=== PATIENT | female | born 1970 | race Caucasian/White ===

== ENCOUNTER 2017-02-22 17:28 | Emergency (ER) | payer MEDICARE, MEDICAID ==
[~2017-02-22] VITALS: Ht 162.6 cm; Wt 53.5 kg
[~2017-02-22 17:28] MED LIST: DIVA500T35 PO; QUET50XR PO; VENL-67 PO
[2017-02-22 17:35] VITALS: BP 124/72
== END 2017-02-22 20:30 | disposition left against medical advice (07) ==
LOC: EMS 17:32
DX: M54.9 Dorsalgia, unspecified (principal); Z53.21 Procedure and treatment not carried out due to patient leaving prior to being seen by health care provider

== ENCOUNTER 2018-04-19 12:22 | Emergency (ER) | payer MEDICARE, OTHER ==
[~2018-04-19] VITALS: Ht 162.6 cm; Wt 59.0 kg
[2018-04-19] MEDS ORDERED: BUSP10TA23 PO (12:51)
[2018-04-19 13:43] VITALS: BP 118/61
[2018-04-19] MEDS ORDERED: ACETAMINOPHEN 325 MG TABLET PO ONE (13:45)
== END 2018-04-19 13:59 | disposition home or self-care (01) ==
LOC: EMS 12:24
DX: H93.12 Tinnitus, left ear (principal); G43.909 Migraine, unspecified, not intractable, without status migrainosus; F17.210 Nicotine dependence, cigarettes, uncomplicated; F19.90 Other psychoactive substance use, unspecified, uncomplicated; F14.90 Cocaine use, unspecified, uncomplicated; Z88.8 Allergy status to other drugs, medicaments and biological substances; Z59.0 Homelessness
CPT/HCPCS: 99283

== ENCOUNTER 2020-04-21 17:33 | Emergency (ER) | payer MEDICARE, OTHER ==
[~2020-04-21] VITALS: Ht 162.6 cm; Wt 63.6 kg
[~2020-04-21 17:33] MED LIST changes: +BUSP10TA23 PO; +DIVA-112 PO; -DIVA500T35 PO; +QUET50TA15 PO; -QUET50XR PO; -VENL-67 PO
[2020-04-21] MEDS ORDERED: ACETAMINOPHEN 500 MG TABLET PO ONE (19:00)
[2020-04-21 19:10] VITALS: BP 132/88
== END 2020-04-21 19:11 | disposition home or self-care (01) ==
LOC: EMS 17:45
DX: S09.90XA Unspecified injury of head, initial encounter (principal); F41.9 Anxiety disorder, unspecified; F32.9 Major depressive disorder, single episode, unspecified; G43.909 Migraine, unspecified, not intractable, without status migrainosus; F20.9 Schizophrenia, unspecified; F14.90 Cocaine use, unspecified, uncomplicated; F19.90 Other psychoactive substance use, unspecified, uncomplicated; Z59.0 Homelessness; Z88.8 Allergy status to other drugs, medicaments and biological substances; Y04.2XXA Assault by strike against or bumped into by another person, initial encounter; Y93.89 Activity, other specified; Y92.89 Other specified places as the place of occurrence of the external cause; Y99.8 Other external cause status

== ENCOUNTER 2020-05-16 12:48 | Emergency (ER) | payer MEDICARE, OTHER ==
[~2020-05-16] VITALS: Ht 162.6 cm; Wt 63.6 kg
[2020-05-16 12:53] VITALS: BP 108/59
[2020-05-16] MEDS ORDERED: CEPH500 PO (13:00)
[2020-05-16] MEDS ORDERED: QUET25TA PO (13:38)
[2020-05-16] MEDS ORDERED: ACETAMINOPHEN 500 MG TABLET PO ONE (13:45)
== END 2020-05-16 14:29 | disposition home or self-care (01) ==
LOC: EMS 12:54
DX: M79.672 Pain in left foot (principal); G89.29 Other chronic pain; F17.210 Nicotine dependence, cigarettes, uncomplicated; F41.9 Anxiety disorder, unspecified; F32.9 Major depressive disorder, single episode, unspecified; F20.9 Schizophrenia, unspecified; G43.909 Migraine, unspecified, not intractable, without status migrainosus; F19.90 Other psychoactive substance use, unspecified, uncomplicated; Z59.0 Homelessness
CPT/HCPCS: 99406

== ENCOUNTER 2020-05-25 14:33 | Emergency (ER) | payer MEDICARE, OTHER ==
[~2020-05-25] VITALS: Ht 167.6 cm; Wt 72.7 kg
[~2020-05-25 14:33] MED LIST changes: +CEPH500 PO; +QUET25TA PO; -QUET50TA15 PO
[2020-05-25] MEDS ORDERED: GABA-1216 PO (14:39)
[2020-05-25] MEDS ORDERED: ARIP300S3 IM (14:39)
[2020-05-25] MEDS ORDERED: KETOROLAC TROMETHAMINE 30 MG/ML VIAL IM ONE (15:45)
[2020-05-25 16:36] VITALS: BP 111/66
== END 2020-05-25 16:41 | disposition home or self-care (01) ==
LOC: EMS 14:37
DX: M72.2 Plantar fascial fibromatosis (principal); F17.210 Nicotine dependence, cigarettes, uncomplicated; F41.9 Anxiety disorder, unspecified; F32.9 Major depressive disorder, single episode, unspecified; F20.9 Schizophrenia, unspecified; G40.909 Epilepsy, unspecified, not intractable, without status epilepticus; F14.90 Cocaine use, unspecified, uncomplicated; F15.90 Other stimulant use, unspecified, uncomplicated; Z59.0 Homelessness
CPT/HCPCS: 96372; 99283; 99406; J1885

== ENCOUNTER 2020-06-04 14:09 | Emergency (ER) | payer MEDICARE, OTHER ==
[~2020-06-04 14:09] MED LIST changes: +ARIP300S3 IM; -BUSP10TA23 PO; -DIVA-112 PO; +GABA-1216 PO; -QUET25TA PO
== END 2020-06-04 14:19 | disposition left against medical advice (07) ==
LOC: EMS 14:11
DX: M79.673 Pain in unspecified foot (principal); Z53.21 Procedure and treatment not carried out due to patient leaving prior to being seen by health care provider

== ENCOUNTER 2020-06-07 12:15 | Emergency (ER) | payer MEDICARE, OTHER ==
[~2020-06-07] VITALS: Ht 162.6 cm; Wt 65.9 kg
[2020-06-07] MEDS ORDERED: KETOROLAC TROMETHAMINE 30 MG/ML VIAL IM ONE (13:00)
[2020-06-07] MEDS ORDERED: HYDROCODONE/ACETAMINOPHEN 5-325 MG TABLET PO ONE (13:00)
[2020-06-07 14:09] VITALS: BP 133/86
== END 2020-06-07 14:18 | disposition home or self-care (01) ==
LOC: EMS 12:18
DX: G89.29 Other chronic pain (principal); M79.671 Pain in right foot; M79.672 Pain in left foot; F32.9 Major depressive disorder, single episode, unspecified; G43.909 Migraine, unspecified, not intractable, without status migrainosus; F20.9 Schizophrenia, unspecified; F17.210 Nicotine dependence, cigarettes, uncomplicated; F14.90 Cocaine use, unspecified, uncomplicated; F15.90 Other stimulant use, unspecified, uncomplicated; Z59.0 Homelessness
CPT/HCPCS: 96372; 99283; J1885

== ENCOUNTER 2020-06-16 10:23 | Emergency (ER) | payer MEDICARE, OTHER ==
[~2020-06-16] VITALS: Ht 162.6 cm; Wt 63.6 kg
[2020-06-16 10:35] VITALS: BP 125/75
== END 2020-06-16 11:10 | disposition left against medical advice (07) ==
LOC: EDUNIT# 10:23 → EMS 10:25
DX: M79.672 Pain in left foot (principal); Z53.21 Procedure and treatment not carried out due to patient leaving prior to being seen by health care provider

== ENCOUNTER 2020-08-06 14:57 | Emergency (ER) | payer MEDICARE, OTHER ==
[~2020-08-06] VITALS: Ht 160 cm; Wt 63.6 kg
[2020-08-06 16:49] LABS: EOSINOPHILS % (AUTO) 0.9 % (1.0-6.0); HEMATOCRIT 37.3 % (36-46); HEMOGLOBIN 12.3 g/dL (12.0-16.0); LYMPHOCYTES % (AUTO) 33.6 % (22.0-44.0); MEAN CORPUSCULAR HEMOGLOBIN 28.8 pg (26.0-34.0); MEAN CORPUSCULAR HGB CONC 33.1 G/dL (31.0-37.0); MEAN CORPUSCULAR VOLUME 87 fL (80-100); MONOCYTES # (AUTO) 0.4 K/uL (0.1-1.0); MONOCYTES % (AUTO) 6.1 % (2.0-9.0); NEUTROPHILS # (AUTO) 3.6 K/uL (1.8-7.7); NEUTROPHILS % (AUTO) 58.4 % (40.0-70.0); PLATELET COUNT (AUTO) 439 K/uL (150-450); RED BLOOD CELL COUNT(AUTO) 4.28 MIL/uL (4.00-5.20); RED CELL DISTRIBUTION WIDTH 15.3 % (11.5-14.5)
[2020-08-06 16:55] LABS: ANION GAP 12 mmol/L (8-16); CALCIUM, TOTAL 9.3 mg/dL (8.8-10.5); CARBON DIOXIDE 25 mmol/L (22-29); CHLORIDE 103 mmol/L (98-107); CREATININE 1.07 mg/dL (0.60-1.30); GLOMERULAR FILTR. RATE CALC 54 mL/min (>60); GLUCOSE,RANDOM 94 mg/dL (70-110); POTASSIUM 3.5 mmol/L (3.5-5.1); SODIUM SERUM 140 mmol/L (136-145); UREA NITROGEN, BLOOD 14 mg/dL (7-18)
[2020-08-06 17:01] LABS: ALANINE AMINOTRANSFERASE 25 U/L (12-78); ALBUMIN 3.4 g/dL (3.4-5.0); ALKALINE PHOSPHATASE 138 U/L (46-116); ASPARTATE AMINOTRANSFERASE 30 U/L (15-37); BILIRUBIN,TOTAL 0.4 mg/dL (0.1-1.0); TOTAL PROTEIN, SERUM 7.2 g/dL (6.4-8.2)
[2020-08-06 17:09] LABS: APPEARANCE,URINE CLOUDY (CLEAR); BILIRUBIN,URINE PRELIM. POSITIVE (NEGATIVE); GLUCOSE, URINE (UA) NEGATIVE (NEGATIVE); KETONES,URINE NEGATIVE (NEGATIVE); LEUKOCYTE ESTERASE ,URINE SMALL (NEGATIVE); NITRATE,URINE POSITIVE (NEGATIVE); OCCULT BLOOD,URINE NEGATIVE (NEGATIVE); PH,URINE 5.5 (5.0-8.0); PROTEIN,URINE NEGATIVE (NEGATIVE)
[2020-08-06 17:15] LABS: AMPHET/METH SCREEN,URINE POSITIVE (NEGATIVE); BARBITURATE SCREEN, URINE NEGATIVE (NEGATIVE); BENZODIAZEPINES SCREEN,URINE NEGATIVE (NEGATIVE); CANNABINOID SCREEN,URINE NEGATIVE (NEGATIVE); COCAINE SCREEN,URINE NEGATIVE (NEGATIVE); METHADONE SCREEN, URINE NEGATIVE (NEGATIVE); OPIATE SCREEN,URINE NEGATIVE (NEGATIVE); PHENCYCLIDINE SCREEN,URINE NEGATIVE (NEGATIVE)
[2020-08-06 17:16] LABS: BACTERIA,URINE Many /HPF (None Seen); RBC,URINE 0-2 /HPF (0-2); SQUAMOUS EPITHELIAL CELL,UR Few /LPF (None Seen)
[2020-08-06 17:20] VITALS: BP 144/83
== END 2020-08-06 17:33 | disposition left against medical advice (07) ==
LOC: EMS 14:58
DX: F41.9 Anxiety disorder, unspecified (principal); F32.9 Major depressive disorder, single episode, unspecified; N39.0 Urinary tract infection, site not specified; F20.9 Schizophrenia, unspecified; F17.210 Nicotine dependence, cigarettes, uncomplicated; F15.90 Other stimulant use, unspecified, uncomplicated; Z88.8 Allergy status to other drugs, medicaments and biological substances
CPT/HCPCS: 36415; 80053; 80307; 81001; 85025; 87086; 93005; 99284; G0480

== ENCOUNTER 2020-08-17 11:29 | Emergency (ER) | payer MEDICARE, OTHER ==
[~2020-08-17] VITALS: Ht 162.6 cm; Wt 63.6 kg
[2020-08-17 11:36] VITALS: BP 143/92
[2020-08-17] MEDS ORDERED: ACETAMINOPHEN 500 MG TABLET PO ONE (12:15)
[2020-08-17] MEDS ORDERED: MAG HYDROX/AL HYDROX/SIMETH ES 30 ML SUSPENSION UDCUP PO ONE (12:15)
[2020-08-17] MEDS ORDERED: FAMOTIDINE 20 MG TABLET PO ONE (12:15)
== END 2020-08-17 13:31 | disposition left against medical advice (07) ==
LOC: EMS 11:29
DX: F31.9 Bipolar disorder, unspecified (principal); F15.10 Other stimulant abuse, uncomplicated; F17.210 Nicotine dependence, cigarettes, uncomplicated; Z88.8 Allergy status to other drugs, medicaments and biological substances
CPT/HCPCS: Z7502; Z7610

== ENCOUNTER 2020-09-04 14:23 | Emergency (ER) | payer MEDICARE, OTHER ==
[~2020-09-04] VITALS: Ht 162.6 cm; Wt 140.0 kg
[2020-09-04 14:31] VITALS: BP 139/77
[2020-09-04] MEDS ORDERED: ARIP5TAB8 PO (14:32)
== END 2020-09-04 16:12 | disposition left against medical advice (07) ==
LOC: EMS 14:23
DX: R30.9 Painful micturition, unspecified (principal); Z53.21 Procedure and treatment not carried out due to patient leaving prior to being seen by health care provider

== ENCOUNTER 2020-10-14 17:07 | Emergency (ER) | payer MEDICARE, OTHER ==
[~2020-10-14] VITALS: Ht 160 cm; Wt 63.6 kg
[~2020-10-14 17:07] MED LIST changes: -ARIP300S3 IM; +ARIP5TAB8 PO; -CEPH500 PO; -GABA-1216 PO
[2020-10-14 17:13] VITALS: BP 132/88
[2020-10-14 18:37] LABS: AMPHET/METH SCREEN,URINE POSITIVE (NEGATIVE); BARBITURATE SCREEN, URINE NEGATIVE (NEGATIVE); BENZODIAZEPINES SCREEN,URINE NEGATIVE (NEGATIVE); CANNABINOID SCREEN,URINE NEGATIVE (NEGATIVE); COCAINE SCREEN,URINE NEGATIVE (NEGATIVE); METHADONE SCREEN, URINE NEGATIVE (NEGATIVE); OPIATE SCREEN,URINE NEGATIVE (NEGATIVE)
[2020-10-14 18:42] LABS: BASOPHILS % (AUTO) 0.6 % (0.0-2.0); EOSINOPHILS % (AUTO) 0.8 % (1.0-6.0); HEMATOCRIT 37.7 % (36-46); HEMOGLOBIN 12.1 g/dL (12.0-16.0); LYMPHOCYTES # (AUTO) 2.5 K/uL (1.0-4.8); LYMPHOCYTES % (AUTO) 29.5 % (22.0-44.0); MEAN CORPUSCULAR HEMOGLOBIN 26.8 pg (26.0-34.0); MEAN CORPUSCULAR VOLUME 84 fL (80-100); MONOCYTES # (AUTO) 0.4 K/uL (0.1-1.0); MONOCYTES % (AUTO) 4.8 % (2.0-9.0); NEUTROPHILS # (AUTO) 5.5 K/uL (1.8-7.7); NEUTROPHILS % (AUTO) 64.3 % (40.0-70.0); PLATELET COUNT (AUTO) 438 K/uL (150-450); RED BLOOD CELL COUNT(AUTO) 4.51 MIL/uL (4.00-5.20); RED CELL DISTRIBUTION WIDTH 17.1 % (11.5-14.5)
[2020-10-14 18:43] LABS: COVID AG,FIA SOURCE NASOPHARYNGEAL
[2020-10-14 18:48] LABS: APPEARANCE,URINE CLOUDY (CLEAR); BILIRUBIN,URINE NEGATIVE (NEGATIVE); GLUCOSE, URINE (UA) NEGATIVE (NEGATIVE); KETONES,URINE NEGATIVE (NEGATIVE); LEUKOCYTE ESTERASE ,URINE TRACE (NEGATIVE); NITRATE,URINE POSITIVE (NEGATIVE); OCCULT BLOOD,URINE NEGATIVE (NEGATIVE); PH,URINE 6.5 (5.0-8.0); PROTEIN,URINE NEGATIVE (NEGATIVE)
[2020-10-14 18:51] LABS: PHENCYCLIDINE SCREEN,URINE NEGATIVE (NEGATIVE)
[2020-10-14 18:54] LABS: ANION GAP 6 mmol/L (8-16); CALCIUM, TOTAL 9.2 mg/dL (8.8-10.5); CARBON DIOXIDE 29 mmol/L (22-29); CHLORIDE 99 mmol/L (98-107); CREATININE 0.87 mg/dL (0.60-1.30); GLOMERULAR FILTR. RATE CALC > 60 mL/min (>60); GLUCOSE,RANDOM 97 mg/dL (70-110); SODIUM SERUM 134 mmol/L (136-145); UREA NITROGEN, BLOOD 10 mg/dL (7-18)
[2020-10-14 18:59] LABS: ALANINE AMINOTRANSFERASE 27 U/L (12-78); ALBUMIN 3.5 g/dL (3.4-5.0); ALKALINE PHOSPHATASE 112 U/L (46-116); ASPARTATE AMINOTRANSFERASE 19 U/L (15-37); BILIRUBIN,TOTAL 0.2 mg/dL (0.1-1.0); LIPASE 240 U/L (73-393); TOTAL PROTEIN, SERUM 7.6 g/dL (6.4-8.2)
[2020-10-14 19:38] LABS: BACTERIA,URINE Many /HPF (None Seen); RBC,URINE None Seen /HPF (0-2); SQUAMOUS EPITHELIAL CELL,UR Few /LPF (None Seen)
[2020-10-14] MEDS ORDERED: PB/HYOSCY/ATR/SCOP/LIDO/MAALOX 55 ML BOTTLE PO ONE (20:15)
[2020-10-14] MEDS ORDERED: FAMOTIDINE 20 MG TABLET PO ONE (20:15)
[2020-10-14] MEDS ORDERED: CEPHALEXIN MONOHYDRATE 500 MG CAPSULE PO ONE (20:15)
[2020-10-14] MEDS ORDERED: OMEPRAZOLE 20 MG CAPSULE PO ONE (20:15)
== END 2020-10-14 23:50 | disposition home or self-care (01) ==
LOC: EMS 17:07
DX: N39.0 Urinary tract infection, site not specified (principal); Z20.828 Contact with and (suspected) exposure to other viral communicable diseases
CPT/HCPCS: 36415; 71045; 80053; 80307; 81001; 83690; 84484; 85025; 87086; 87426; 99284; G0480

== ENCOUNTER 2021-03-03 13:41 | Emergency (ER) | payer MEDICARE, OTHER ==
[~2021-03-03] VITALS: Ht 162.6 cm; Wt 65.9 kg
[~2021-03-03 13:41] MED LIST changes: +ARIP5TAB37 PO; -ARIP5TAB8 PO
[2021-03-03 13:52] VITALS: BP 100/66
[2021-03-03] MEDS ORDERED: ARIP400S3 IM (13:53)
== END 2021-03-03 14:50 | disposition home or self-care (01) ==
LOC: EMS 13:44
DX: L25.9 Unspecified contact dermatitis, unspecified cause (principal); F20.9 Schizophrenia, unspecified; F17.210 Nicotine dependence, cigarettes, uncomplicated; F19.90 Other psychoactive substance use, unspecified, uncomplicated; Z59.0 Homelessness; Z88.6 Allergy status to analgesic agent
CPT/HCPCS: 99282; 99283

== ENCOUNTER 2021-03-14 13:19 | Emergency (ER) | payer BC, OTHER ==
[~2021-03-14] VITALS: Ht 157.5 cm; Wt 72.7 kg
[~2021-03-14 13:19] MED LIST changes: +ARIP400S3 IM; -ARIP5TAB37 PO
[2021-03-14] MEDS ORDERED: KETOROLAC TROMETHAMINE 30 MG/ML VIAL IVP ONE (14:15)
[2021-03-14] MEDS ORDERED: SODIUM CHLORIDE 0.9% 1,000 ML IV ONE (14:15)
[2021-03-14] MEDS ORDERED: SODIUM CHLORIDE 0.9% 100 ML ONE (15:09)
[2021-03-14] MEDS ORDERED: IOHEXOL 350 MG/ML 100 ML VIAL ONE (15:09)
[2021-03-14 15:39] LABS: BASOPHILS % (AUTO) 0.2 % (0.0-2.0); EOSINOPHILS % (AUTO) 0.2 % (1.0-6.0); HEMOGLOBIN 13.9 g/dL (12.0-16.0); LYMPHOCYTES # (AUTO) 1.4 K/uL (1.0-4.8); LYMPHOCYTES % (AUTO) 11.4 % (22.0-44.0); MEAN CORPUSCULAR HEMOGLOBIN 31.6 pg (26.0-34.0); MEAN CORPUSCULAR HGB CONC 33.2 G/dL (31.0-37.0); MEAN CORPUSCULAR VOLUME 95 fL (80-100); MONOCYTES # (AUTO) 0.8 K/uL (0.1-1.0); MONOCYTES % (AUTO) 6.7 % (2.0-9.0); NEUTROPHILS # (AUTO) 10.1 K/uL (1.8-7.7); NEUTROPHILS % (AUTO) 81.5 % (40.0-70.0); PLATELET COUNT (AUTO) 224 K/uL (150-450); RED BLOOD CELL COUNT(AUTO) 4.41 MIL/uL (4.00-5.20); RED CELL DISTRIBUTION WIDTH 16.8 % (11.5-14.5)
[2021-03-14] MEDS ORDERED: DEXAMETHASONE 4 MG TABLET PO ONE (15:45)
[2021-03-14] MEDS ORDERED: CLINDAMYCIN 900 MG/D5% WATER 50 ML IV ONE (15:45)
[2021-03-14 15:52] LABS: ANION GAP 8 mmol/L (8-16); CALCIUM, TOTAL 8.8 mg/dL (8.8-10.5); CARBON DIOXIDE 27 mmol/L (22-29); CHLORIDE 104 mmol/L (98-107); CREATININE 0.81 mg/dL (0.60-1.30); GLOMERULAR FILTR. RATE CALC > 60 mL/min (>60); GLUCOSE,RANDOM 89 mg/dL (70-110); POTASSIUM 3.9 mmol/L (3.5-5.1); SODIUM SERUM 139 mmol/L (136-145); UREA NITROGEN, BLOOD 7 mg/dL (7-18)
[2021-03-14] MEDS ORDERED: LORazepam 1 MG TABLET PO ONE (16:00)
[2021-03-14 19:28] LABS: COVID AG,FIA SOURCE NASOPHARYNGEAL
[2021-03-14 20:00] VITALS: BP 118/81
== END 2021-03-14 21:19 | disposition home or self-care (01) ==
LOC: EMS 13:25
DX: J36 Peritonsillar abscess (principal); F20.9 Schizophrenia, unspecified; F17.210 Nicotine dependence, cigarettes, uncomplicated; F19.90 Other psychoactive substance use, unspecified, uncomplicated; Z20.822 Contact with and (suspected) exposure to COVID-19; Z59.0 Homelessness; Z88.6 Allergy status to analgesic agent
CPT/HCPCS: 36415; 70491; 80048; 85025; 87426; 87430; 96361; 96365; 96375; 99285; A9575; J1885; J3490; J7030; J7050; J8540

== ENCOUNTER 2021-06-18 15:00 | Emergency (ER) | payer MEDICARE, OTHER | END 2021-06-18 16:00 | disposition left against medical advice (07) | LOC: EMS 15:02 | DX: R51.9 Headache, unspecified (principal); Z53.21 Procedure and treatment not carried out due to patient leaving prior to being seen by health care provider ==

== ENCOUNTER 2022-02-11 16:20 | Emergency (ER) | payer MEDICARE, OTHER ==
[~2022-02-11] VITALS: Ht 162.6 cm; Wt 67.7 kg
[2022-02-11 16:35] VITALS: BP 154/104
[2022-02-11 17:03] LABS: COVID AG,FIA SOURCE NASOPHARYNGEAL
== END 2022-02-11 17:15 | disposition left against medical advice (07) ==
LOC: EMS 16:20
DX: M75.21 Bicipital tendinitis, right shoulder (principal); J40 Bronchitis, not specified as acute or chronic; F20.9 Schizophrenia, unspecified; F17.210 Nicotine dependence, cigarettes, uncomplicated; F19.90 Other psychoactive substance use, unspecified, uncomplicated; Z20.822 Contact with and (suspected) exposure to COVID-19; Z59.00 Homelessness unspecified; Z88.6 Allergy status to analgesic agent
CPT/HCPCS: 99283

== ENCOUNTER 2022-06-09 08:12 | Emergency (ER) | payer MEDICARE, OTHER ==
[~2022-06-09] VITALS: Ht 162.6 cm; Wt 77.3 kg
[2022-06-09 08:17] VITALS: BP 132/91
[2022-06-09 08:43] LABS: BASOPHILS % (AUTO) 0.9 % (0.0-2.0); HEMATOCRIT 41.4 % (36-46); HEMOGLOBIN 14.1 g/dL (12.0-16.0); LYMPHOCYTES # (AUTO) 1.7 K/uL (1.0-4.8); LYMPHOCYTES % (AUTO) 23.8 % (22.0-44.0); MEAN CORPUSCULAR HEMOGLOBIN 31.6 pg (26.0-34.0); MEAN CORPUSCULAR HGB CONC 34.2 G/dL (31.0-37.0); MEAN CORPUSCULAR VOLUME 92 fL (80-100); MONOCYTES # (AUTO) 0.3 K/uL (0.1-1.0); MONOCYTES % (AUTO) 4.2 % (2.0-9.0); NEUTROPHILS # (AUTO) 4.9 K/uL (1.8-7.7); NEUTROPHILS % (AUTO) 70.1 % (40.0-70.0); PLATELET COUNT (AUTO) 298 K/uL (150-450); RED BLOOD CELL COUNT(AUTO) 4.48 MIL/uL (4.00-5.20); RED CELL DISTRIBUTION WIDTH 13.1 % (11.5-14.5)
[2022-06-09 08:53] LABS: CALCIUM, TOTAL 8.8 mg/dL (8.8-10.5); CREATININE 1.11 mg/dL (0.60-1.30); POTASSIUM 3.9 mmol/L (3.5-5.1)
[2022-06-09 09:04] LABS: BILIRUBIN,TOTAL 0.2 mg/dL (0.1-1.0); TOTAL PROTEIN, SERUM 7.6 g/dL (6.4-8.2)
[2022-06-09] MEDS ORDERED: HydrOXYzine PAMOATE 25 MG CAPSULE PO ONE (09:15)
[2022-06-09] MEDS ORDERED: ACETAMINOPHEN 500 MG TABLET PO ONE (10:30)
== END 2022-06-09 11:03 ==
LOC: EMS 08:12
DX: S09.90XA Unspecified injury of head, initial encounter (principal); F15.90 Other stimulant use, unspecified, uncomplicated; F17.210 Nicotine dependence, cigarettes, uncomplicated; Z59.00 Homelessness unspecified; F20.9 Schizophrenia, unspecified; Z88.8 Allergy status to other drugs, medicaments and biological substances; Z79.899 Other long term (current) drug therapy; Y04.0XXA Assault by unarmed brawl or fight, initial encounter; Y93.89 Activity, other specified; Y92.89 Other specified places as the place of occurrence of the external cause; Y99.8 Other external cause status
CPT/HCPCS: 99284; 70450; 80053; 84703; 85025; 36415; 72125; G0480

== ENCOUNTER 2022-08-27 01:52 | Emergency (ER) | payer MEDICARE, OTHER ==
[2022-08-27] MEDS ORDERED: ARIP400S IM (02:10)
== END 2022-08-27 02:30 | disposition left against medical advice (07) ==
LOC: EMS 01:54
DX: R07.9 Chest pain, unspecified (principal); Z53.21 Procedure and treatment not carried out due to patient leaving prior to being seen by health care provider
CPT/HCPCS: 93005

== ENCOUNTER 2023-02-21 12:30 | Emergency (ER) | payer MEDICARE, OTHER ==
[~2023-02-21] VITALS: Ht 162.6 cm; Wt 65.9 kg
[~2023-02-21 12:30] MED LIST changes: +ARIP400S IM; +GUAIFDM PO; +HYDR-4723 PO; +IBUP-1554 PO; +NIRM1TAB4 PO
[2023-02-21 12:35] VITALS: BP 117/91
[2023-02-21] MEDS ORDERED: GuaiFENesin/D-METHORPHAN [SUGAR-FREE] 200-20MG/10 ML SYRUP UDCUP PO ONE (12:45)
[2023-02-21] MEDS ORDERED: HYDROCODONE/ACETAMINOPHEN 5-325 MG TABLET PO ONE (12:45)
[2023-02-21 13:10] LABS: COVID AG,FIA SOURCE NASOPHARYNGEAL
[2023-02-21 13:53] LABS: INFLUENZA TYPE A NEGATIVE FOR TYPE A (NEGATIVE); INFLUENZA TYPE B NEGATIVE FOR TYPE B (NEGATIVE)
[2023-02-21] MEDS ORDERED: IBUP-1554 PO (13:55)
[2023-02-21] MEDS ORDERED: HYDR-4072 PO (13:55)
[2023-02-21] MEDS ORDERED: GUAIFDM PO (13:55)
== END 2023-02-21 14:27 | disposition home or self-care (01) ==
LOC: EMS 12:39
DX: J20.9 Acute bronchitis, unspecified (principal); J06.9 Acute upper respiratory infection, unspecified; G89.29 Other chronic pain; M25.562 Pain in left knee; F17.210 Nicotine dependence, cigarettes, uncomplicated; F15.90 Other stimulant use, unspecified, uncomplicated; F20.9 Schizophrenia, unspecified; Z90.49 Acquired absence of other specified parts of digestive tract; Z98.890 Other specified postprocedural states; Z59.00 Homelessness unspecified; Z88.8 Allergy status to other drugs, medicaments and biological substances; Z20.822 Contact with and (suspected) exposure to COVID-19
CPT/HCPCS: 87804; 99284; 73562-TC; Z7502; Z7610

== ENCOUNTER 2023-03-06 05:19 | Emergency (ER) | payer MEDICARE, OTHER ==
[~2023-03-06] VITALS: Ht 162.6 cm; Wt 65.9 kg
[~2023-03-06 05:19] MED LIST changes: -ARIP400S3 IM; +HYDR-4072 PO
[2023-03-06 05:26] VITALS: BP 135/76
[2023-03-06] MEDS ORDERED: GABA-1216 PO (05:33)
[2023-03-06 06:37] LABS: BASOPHILS % (AUTO) 0.7 % (0.0-2.0); EOSINOPHILS % (AUTO) 1.2 % (1.0-6.0); HEMATOCRIT 39.9 % (36-46); LYMPHOCYTES # (AUTO) 1.3 K/uL (1.0-4.8); LYMPHOCYTES % (AUTO) 17.8 % (22.0-44.0); MEAN CORPUSCULAR HEMOGLOBIN 30.8 pg (26.0-34.0); MEAN CORPUSCULAR HGB CONC 32.7 G/dL (31.0-37.0); MEAN CORPUSCULAR VOLUME 94 fL (80-100); MONOCYTES # (AUTO) 0.5 K/uL (0.1-1.0); MONOCYTES % (AUTO) 6.8 % (2.0-9.0); NEUTROPHILS # (AUTO) 5.3 K/uL (1.8-7.7); NEUTROPHILS % (AUTO) 73.5 % (40.0-70.0); PLATELET COUNT (AUTO) 329 K/uL (150-450); RED BLOOD CELL COUNT(AUTO) 4.23 MIL/uL (4.00-5.20); RED CELL DISTRIBUTION WIDTH 15.3 % (11.5-14.5)
[2023-03-06 06:54] LABS: ANION GAP 5 mmol/L (8-16); CARBON DIOXIDE 30 mmol/L (22-29); CHLORIDE 104 mmol/L (98-107); CREATININE 0.82 mg/dL (0.60-1.30); GLOMERULAR FILTR. RATE CALC > 60 mL/min (>60); GLUCOSE,RANDOM 52 mg/dL (70-110); POTASSIUM 4.1 mmol/L (3.5-5.1); SODIUM SERUM 139 mmol/L (136-145)
[2023-03-06 07:00] LABS: ALANINE AMINOTRANSFERASE 26 U/L (12-78); ALBUMIN 3.4 g/dL (3.4-5.0); ALKALINE PHOSPHATASE 110 U/L (46-116); ASPARTATE AMINOTRANSFERASE 22 U/L (15-37); BILIRUBIN,TOTAL 0.3 mg/dL (0.1-1.0)
[2023-03-06] MEDS ORDERED: KETOROLAC TROMETHAMINE 30 MG/ML VIAL IM ONE (07:00)
[2023-03-06] MEDS ORDERED: LIDOCAINE 5% TRANSDERMAL PATCH TD ONE (07:00)
== END 2023-03-06 07:52 | disposition left against medical advice (07) ==
LOC: EMS 05:21
DX: M25.562 Pain in left knee (principal); F20.9 Schizophrenia, unspecified; F17.210 Nicotine dependence, cigarettes, uncomplicated; F15.90 Other stimulant use, unspecified, uncomplicated; Z90.49 Acquired absence of other specified parts of digestive tract; Z59.00 Homelessness unspecified; Z98.890 Other specified postprocedural states; Z88.8 Allergy status to other drugs, medicaments and biological substances
CPT/HCPCS: 99283; 80053; 85025; 36415; G0480; J1885

== ENCOUNTER 2023-03-18 19:25 | Inpatient (IN) | payer MEDICARE, MEDICAID ==
[~2023-03-18] VITALS: Ht 162.6 cm; Wt 66.0 kg
[~2023-03-18 19:25] MED LIST changes: +GABA-1216 PO; -GUAIFDM PO; -HYDR-4072 PO; -HYDR-4723 PO; -IBUP-1554 PO; -NIRM1TAB4 PO
[2023-03-18 20:30] LABS: COVID AG,FIA SOURCE NASAL SWAB
[2023-03-18] MEDS ORDERED: HALOPERIDOL 5 MG TABLET PO PRN (20:30)
[2023-03-18] MEDS ORDERED: ZOLPIDEM TARTRATE 10 MG TABLET PO PRN (20:30)
[2023-03-18 20:32] LABS: BASOPHILS % (AUTO) 1.1 % (0.0-2.0); EOSINOPHILS % (AUTO) 1.9 % (1.0-6.0); HEMATOCRIT 38.9 % (36-46); HEMOGLOBIN 12.8 g/dL (12.0-16.0); LYMPHOCYTES # (AUTO) 2.5 K/uL (1.0-4.8); LYMPHOCYTES % (AUTO) 42.2 % (22.0-44.0); MEAN CORPUSCULAR HEMOGLOBIN 30.9 pg (26.0-34.0); MEAN CORPUSCULAR HGB CONC 32.9 G/dL (31.0-37.0); MEAN CORPUSCULAR VOLUME 94 fL (80-100); MONOCYTES # (AUTO) 0.3 K/uL (0.1-1.0); MONOCYTES % (AUTO) 4.8 % (2.0-9.0); NEUTROPHILS # (AUTO) 2.9 K/uL (1.8-7.7); PLATELET COUNT (AUTO) 354 K/uL (150-450); RED BLOOD CELL COUNT(AUTO) 4.15 MIL/uL (4.00-5.20); RED CELL DISTRIBUTION WIDTH 14.8 % (11.5-14.5)
[2023-03-18 20:47] LABS: ALANINE AMINOTRANSFERASE 25 U/L (12-78); ALBUMIN 3.2 g/dL (3.4-5.0); ALKALINE PHOSPHATASE 98 U/L (46-116); ANION GAP 13 mmol/L (8-16); ASPARTATE AMINOTRANSFERASE 24 U/L (15-37); BILIRUBIN,TOTAL 0.2 mg/dL (0.1-1.0); CALCIUM, TOTAL 8.8 mg/dL (8.8-10.5); CARBON DIOXIDE 24 mmol/L (22-29); CHLORIDE 101 mmol/L (98-107); CREATININE 0.81 mg/dL (0.60-1.30); GLOMERULAR FILTR. RATE CALC > 60 mL/min (>60); GLUCOSE,RANDOM 97 mg/dL (70-110); POTASSIUM 3.9 mmol/L (3.5-5.1); SODIUM SERUM 138 mmol/L (136-145); TOTAL PROTEIN, SERUM 6.8 g/dL (6.4-8.2)
[2023-03-19] VITALS (8 sets, daily range): BP systolic 108–131; BP diastolic 56–76
[2023-03-19] MEDS ORDERED: MAG HYDROX/AL HYDROX/SIMETH ES 30 ML SUSPENSION UDCUP PO PRN (06:45)
[2023-03-19] MEDS ORDERED: LOPERAMIDE HCL 2 MG CAPSULE PO PRN (06:45)
[2023-03-19] MEDS ORDERED: DOCUSATE SODIUM 100 MG CAPSULE PO PRN (06:45)
[2023-03-19] MEDS ORDERED: ACETAMINOPHEN 325 MG TABLET PO PRN (06:45)
[2023-03-19] MEDS ORDERED: ALBUTEROL SULFATE HFA 90 MCG/PUFF 8 GM INHALER IH PRN (06:45)
[2023-03-19] MEDS ORDERED: PETROLATUM,WHITE 28 GM JELLY TP PRN (06:45)
[2023-03-19] MEDS ORDERED: GuaiFENesin/D-METHORPHAN [SUGAR-FREE] 200-20MG/10 ML SYRUP UDCUP PO PRN (06:45)
[2023-03-19] MEDS ORDERED: MAGNESIUM HYDROXIDE SUSPENSION 30 ML UDCUP PO PRN (06:45)
[2023-03-19] MEDS ORDERED: CloNIDine HCL 0.1 MG TABLET PO PRN (06:45)
[2023-03-19] MEDS ORDERED: ONDANSETRON HCL 4 MG TABLET PO PRN (06:45)
[2023-03-19] MEDS: IBUPROFEN 400 MG TABLET PO PRN ×2 (09:51→17:51)
[2023-03-19] MEDS: NICOTINE 14 MG/24 HOUR PATCH TD PRN (09:51)
[2023-03-19] MEDS: ARIPiprazole 10 MG TABLET PO SCH (13:25)
[2023-03-20 02:00] VITALS: BP 120/75
[2023-03-20] MEDS: IBUPROFEN 400 MG TABLET PO PRN ×2 (02:02→09:54)
[2023-03-20] MEDS ORDERED: ARIPiprazole ER SUSPENSION 400 MG PRE-FILLED DUAL CHAMBER SYRINGE IM SCH (09:00)
[2023-03-20 09:29] VITALS: BP 131/73
[2023-03-20] MEDS: ARIPiprazole 10 MG TABLET PO SCH (09:39)
[2023-03-20] MEDS: LORazepam 2 MG TABLET PO PRN (09:42)
[2023-03-20 09:54] VITALS: BP 131/73
[2023-03-20] MEDS: NICOTINE 14 MG/24 HOUR PATCH TD PRN (10:00)
[2023-03-20] MEDS: NICOTINE POLACRILEX 2 MG LOZENGE PO PRN (14:22)
[2023-03-20 17:49] LABS: APPEARANCE,URINE HAZY (CLEAR); BILIRUBIN,URINE NEGATIVE (NEGATIVE); GLUCOSE, URINE (UA) NEGATIVE (NEGATIVE); KETONES,URINE NEGATIVE (NEGATIVE); LEUKOCYTE ESTERASE ,URINE TRACE (NEGATIVE); NITRATE,URINE NEGATIVE (NEGATIVE); OCCULT BLOOD,URINE NEGATIVE (NEGATIVE); PROTEIN,URINE NEGATIVE (NEGATIVE); SPECIFIC GRAVITIY, URINE 1.021 (1.003-1.030); UROBILINOGEN,URINE <=1.0 mg/dL (<=1.0)
[2023-03-20 17:56] LABS: AMPHET/METH SCREEN,URINE POSITIVE (NEGATIVE); BARBITURATE SCREEN, URINE NEGATIVE (NEGATIVE); BENZODIAZEPINES SCREEN,URINE NEGATIVE (NEGATIVE); CANNABINOID SCREEN,URINE NEGATIVE (NEGATIVE); COCAINE SCREEN,URINE NEGATIVE (NEGATIVE); METHADONE SCREEN, URINE NEGATIVE (NEGATIVE); OPIATE SCREEN,URINE NEGATIVE (NEGATIVE); PHENCYCLIDINE SCREEN,URINE NEGATIVE (NEGATIVE)
[2023-03-20 18:06] LABS: BACTERIA,URINE Many /HPF (None Seen); RBC,URINE None Seen /HPF (0-2)
[2023-03-20 21:01] VITALS: BP 113/58
[2023-03-21 00:58] VITALS: BP 113/77
[2023-03-21] MEDS: NICOTINE POLACRILEX 2 MG LOZENGE PO PRN ×2 (01:00→07:42)
[2023-03-21] MEDS: IBUPROFEN 400 MG TABLET PO PRN ×2 (01:00→09:14)
[2023-03-21 07:42] VITALS: BP 158/91
[2023-03-21] MEDS: ARIPiprazole 10 MG TABLET PO SCH (08:12)
[2023-03-21 08:20] VITALS: BP 158/91
[2023-03-21 09:14] VITALS: BP 148/87
[2023-03-21] MEDS: LORazepam 2 MG TABLET PO PRN (09:48)
[2023-03-21] MEDS ORDERED: ARIP10TA38 PO (12:53)
[2023-03-21] MEDS ORDERED: ARIP400S3 IM (12:53)
== END 2023-03-21 13:30 | disposition home or self-care (01) | DRG 885 ==
LOC: EMS 19:44 → 3EI 03-19 00:12
PROVIDERS: ADMIT Psychiatry & Neurology Child & Adolescent Psychiatry; ATTEND Psychiatry & Neurology Child & Adolescent Psychiatry
DX: F25.1 Schizoaffective disorder, depressive type (principal); R45.851 Suicidal ideations; F15.10 Other stimulant abuse, uncomplicated; Z20.822 Contact with and (suspected) exposure to COVID-19; F32.A Depression, unspecified; F41.9 Anxiety disorder, unspecified; F12.10 Cannabis abuse, uncomplicated; F17.210 Nicotine dependence, cigarettes, uncomplicated; G43.909 Migraine, unspecified, not intractable, without status migrainosus; G47.00 Insomnia, unspecified; J45.909 Unspecified asthma, uncomplicated; Z59.00 Homelessness unspecified; Z79.899 Other long term (current) drug therapy; Z98.84 Bariatric surgery status; Z88.8 Allergy status to other drugs, medicaments and biological substances
CPT/HCPCS: 80053; 80307; 81001; 85025; 87086; 87186; 99285; G0480; J0401; Q9967

== ENCOUNTER 2024-04-22 19:04 | Emergency (ER) | payer MEDICARE, OTHER ==
[~2024-04-22] VITALS: Ht 160 cm; Wt 63.6 kg
[~2024-04-22 19:04] MED LIST changes: +ARIP10TA38 PO; -ARIP400S IM; +ARIP400S3 IM; -GABA-1216 PO
[2024-04-22 19:11] VITALS: BP 117/67; PULSE 91; RESP 17; TEMP 98
[2024-04-22] MEDS ORDERED: GABA-529 PO (19:28)
== END 2024-04-22 20:52 | disposition left against medical advice (07) ==
LOC: EMS 19:06
DX: M79.605 Pain in left leg (principal); Z53.21 Procedure and treatment not carried out due to patient leaving prior to being seen by health care provider